=== PATIENT | male | born 1990 | race Caucasian/White ===

== ENCOUNTER → 2020-06-25 11:36 | Outpatient (BNVA) | payer OTHER, MEDICAID, SELFPAY | PROVIDERS: PCP Internal Medicine; Visit Provider Urology | DX: N20.0 Calculus of kidney (principal) | CPT/HCPCS: 99202 ==

== ENCOUNTER → 2021-05-13 12:18 | Outpatient (BNVA) | payer OTHER, MEDICAID, SELFPAY | PROVIDERS: Visit Provider Urology ==

== ENCOUNTER → 2021-05-27 09:58 | Outpatient (BNVA) | payer OTHER, MEDICAID, SELFPAY | PROVIDERS: Visit Provider Urology ==

== ENCOUNTER 2021-11-15 12:27 | Outpatient (REF) | payer OTHER, SELFPAY ==
--- NOTE | ~2021-11-15 | US_ITS ---
EXAMINATION: US RETROPERITONEAL LIMITED (RENAL ONLY) CLINICAL INFORMATION: Renal stones. COMPARISON: None TECHNIQUE: Grayscale and color imaging of the kidneys. FINDINGS: RIGHT KIDNEY: 12.2 x 4.7 x 5.7 cm (SAG x AP x TRV). The kidney is normal in size, contour, and echogenicity. Renal cortical thickness is normal. No calculi or focal parenchymal lesions. No hydronephrosis. LEFT KIDNEY: 14.8 x 5.5 x 5.6 cm (SAG x AP x TRV). The kidney is normal in size, contour, and echogenicity. Renal cortical thickness is normal. No focal parenchymal lesions. No hydronephrosis. There are multiple, at least 6, left renal stones. Largest stone measures 4 mm. US/US renal BI IMPRESSION: Left renal stones.
== END 2021-11-15 12:28 | disposition home or self-care (01) ==
LOC: HO.HMGCX 12:27
PROVIDERS: Visit Provider Urology
DX: N20.0 Calculus of kidney (principal)
CPT/HCPCS: 76775

== ENCOUNTER → 2021-12-14 11:48 | Outpatient (BNVA) | payer OTHER, SELFPAY | PROVIDERS: Visit Provider Urology | DX: Z13.89 Encounter for screening for other disorder (principal) ==

== ENCOUNTER 2023-10-29 04:07 | Emergency (ER) | payer OTHER, SELFPAY ==
--- NOTE | ~2023-10-29 | CT_ITS ---
EXAMINATION: CT ABDOMEN AND PELVIS WITHOUT CONTRAST CLINICAL INFORMATION: Right CVA, history of kidney stones COMPARISON: None available. TECHNIQUE: Multidetector volumetric imaging was performed from the superior aspect of the liver through the pubic symphysis. Sagittal and coronal reformatted images were obtained on the technologist's workstation. This CT examination was performed using dose optimization techniques as appropriate, variously including the following: *Automated exposure control *Adjustment of mA and/or kV according to patient size (this includes techniques or standardized protocols for targeted exams where dose is matched to indication/reason for exam; i.e. extremities or head) *Use of iterative reconstruction technique DLP: 1004 mGy-cm FINDINGS: LUNG BASES: The visualized lung bases are unremarkable. LIVER, GALLBLADDER, AND BILIARY TREE: The liver is normal in size, shape, and attenuation. No focal hepatic lesion or biliary ductal dilatation is identified on this noncontrast exam. Gallbladder is contracted and not adequately evaluated. PANCREAS: Unremarkable. SPLEEN: Unremarkable. ADRENAL GLANDS: Unremarkable. KIDNEYS AND URETERS: No hydronephrosis or obstructing ureteral calculus identified bilaterally. Left renal collecting system is duplicated. There are multiple scattered calculi throughout both kidneys, overall left greater than right measuring up to approximately 7 mm. BLADDER: Mildly distended and grossly unremarkable. GASTROINTESTINAL TRACT: The stomach is distended with fluid and debris. No evidence of bowel obstruction. Colonic diverticulosis is noted. No significant bowel wall thickening is seen. The appendix is unremarkable. No free fluid or free air is seen. ABDOMINAL WALL: No significant hernia is appreciated. LYMPH NODES: Normal. VASCULAR: Mild scattered atherosclerotic calcification. PELVIC VISCERA: Unremarkable. OSSEOUS STRUCTURES: Screw is present in the left femoral neck. Right L5 pars defect is noted. CT/CT abdomen pelvis wo IV con IMPRESSION: 1. No hydronephrosis or obstructing ureteral calculus identified. Multiple bilateral renal calculi. 2. Colonic diverticulosis. 3. Distended stomach containing fluid/debris.
[2023-10-29 04:20] VITALS: BP 152/86; PULSE 68; RESP 18; TEMP 37; O2SAT 98; BMI 38.8
[2023-10-29 04:39] LABS: MANUAL DIFF FLAG NO
[2023-10-29 04:40] VITALS: BP 136/80; PULSE 58; RESP 16; TEMP 36.8; O2SAT 97
[2023-10-29 04:40] LABS: Basophils Percent Auto 0.7 % (0-2); Eosinophils Absolute Auto 0.2 X10*3/uL (0.0-0.4); Eosinophils Percent Auto 3.3 % (0-4); Hematocrit 41.2 % (42.0-52.0); Hemoglobin 13.5 g/dl (14.0-18.0); Lymphocytes Absolute Auto 2.1 X10*3/uL (1.2-4.9); Lymphocytes Percent Auto 37.4 % (20-40); Mean Corpuscular HGB Conc 32.8 g/dl (31.0-36.0); Mean Corpuscular Hemoglobin 24.9 pg (27.0-33.0); Mean Corpuscular Volume 75.9 fL (80.0-98.0); Monocytes Absolute Auto 0.7 X10*3/uL (0.1-1.2); Monocytes Percent Auto 12.2 % (2-11); Neutrophils Absolute Auto 2.7 x10*3/uL (2.0-8.3); Neutrophils Percent Auto 46.4 % (45-73); Platelet Count 293 X10*3/uL (160-400); Red Blood Count 5.43 X10*6/uL (4.60-5.80); Red Cell Distribution Width 13.2 % (11.0-16.0); White Blood Count 5.7 X10*3/uL (4.8-10.8)
[2023-10-29 04:41] LABS: Appearance Urine Clear; Color Urine Yellow; Glucose Urine UA Negative (Negative); Leukocyte Esterase Urine Negative (Negative); Nitrite Urine Negative (Negative); PH 5.5 (5.0-9.0); Specific Gravity - Urine 1.015 (1.005-1.025); Urine Blood Negative (Negative); Urine Ketones Negative (Negative); Urine Protein Negative (Neg-Trace)
[2023-10-29 04:46] LABS: Bacteria Urine None Seen (None Seen); Hyaline Casts Urine 0-2 /LPF (0-2); RBC Urine 0-2 /HPF (0-2); Squamous Epithelial Cell Urine 0-2 /HPF (0-2); WBC Urine 0-5 /HPF (0-5)
--- NOTE | 2023-10-29 04:47 | ED.ABDPAIN ---
HPI - Abdominal Pain General Chief Complaint: Abdominal Pain Stated Complaint: kidney stones Time Seen by Provider: 10/29/23 04:34 Source: patient Mode of arrival: ambulatory Limitations: no limitations History of Present Illness HPI narrative: Right flank pain since last night, no nausea, no vomiting. Patient stated similar to his previous renal colic and kidney stones in the past. No fever, no chills. Related Data Home Medications Medication Instructions Recorded Confirmed famotidine 20 mg tablet 20 mg PO BID 12/14/21 sumatriptan succinate 25 mg tablet 25 mg PO headache 12/14/21 Previous Rx's Medication Instructions Recorded pyridoxine (vitamin B6) 100 mg 100 mg PO DAILY 90 days #90 tabs 12/14/21 tablet Allergies Allergy/AdvReac Type Severity Reaction Status Date / Time shellfish Allergy Unknown Unknown Uncoded 10/29/23 04:24 Review of Systems Review of Systems All other systems are reviewed and are negative Constitutional: Reports as per HPI and Reports no additional constitutional complaints Eyes: Reports as per HPI and Reports no additional eye complaints Reports system reviewed and no additional complaints, except as documented Cardiovascular: Reports as per HPI and Reports no additional cardiovascular complaints Respiratory: Reports as per HPI and Reports no additional respiratory complaints Gastrointestinal: Reports as per HPI and Reports no additional gastrointestinal complaints Genitourinary: Reports no additional female genitourinary complaints Musculoskeletal: Reports no additional musculoskeletal complaints Skin/Breast: Reports system reviewed and no additional complaints, except as docu Psychiatric: Reports no additional psychiatric complaints Endocrine: Reports no additional endocrine complaints Hematologic/Lymphatic: Reports no additional hematologic/lymphatic complaints Allergic/Immunologic: Reports no additional allergic/immunologic complaints Reports system reviewed and no additional complaints, except as documented and Reports Abnormal speech present [facility] Social History Social History Advance Directives: No Advance Directives Information Provided: No Physical Exam ED Vital Signs: Vital Signs - 24 hr 10/29/23 04:20 10/29/23 04:40 Temperature 98.6 F 98.3 F Pulse Rate 68 58 Respiratory Rate 18 16 Blood Pressure 152/86 H 136/80 Pulse Oximetry 98 97 Oxygen Delivery Method Room Air Room Air BMI result Body Mass Index 38.8 Vital signs have been reviewed and appear to be correct. Blood pressure elevated. Heart rate normal. Respiratory rate normal. Temperature normal. Oxygen saturation normal. Appearance: Alert. Oriented X3. No acute distress. Head: Normal external exam. Normocephalic. Atraumatic. No Duque signs noted. No raccoon eyes noted Eyes: PERRLA. EOMI. Conjunctiva and sclera normal. Eyelids normal. ENT: TM's Normal. Pharynx normal. Uvula midline. Moist mucous membranes. No trismus noted. No drooling noted. No muffled voice noted. Neck: Normal inspection. Neck supple. FROM. No adenopathy. Thyroid Normal. No meningeal signs. No neck mass noted. CVS: Normal heart rate and rhythm. Heart sound normal. No murmurs noted. Pulses normal throughout. Respiratory: No respiratory distress. Painless inspiration. Breath sounds normal. No wheezes/rales/rhonchi noted. Chest nontender. No accessory muscle usage noted or decreased air movement noted. Abdomen: Soft and nontender. Bowel sounds normal in all 4 quadrants. No distention noted. No organomegaly noted. No visible injury noted. Back: No CVA tenderness. Full range of motion noted. Skin: Skin warm and dry. Normal skin color. Normal skin turgor. No rashes/lesions/lacerations noted. Extremities: No lower extremity edema. Extremities exhibit normal range of motion. Extremities nontender. Neuro: Oriented X 3. Cranial nerve exam: II-XII are grossly intact No motor deficit. No sensory deficit. Reflexes normal. Course Reevaluation(s) Reevaluation #1: 33-year-old male history of obstructing kidney stones in the past came in with right flank pain, CT is showing no obstructing renal calculi. May be recently passed a kidney stone. Findings were discussed with the patient to follow-up with Dr. Gardner. Time: 05:24 Medical Decision Making Differential Diagnosis Differential Diagnoses: The differential diagnosis associated with the presentation includes (Obstructing kidney stone, UTI, pyelonephritis, colitis, diverticulitis, severe anemia, electrolyte derangement.) Admission/Observation Consideration of admission/observation: Escalation of care including admission/observation considered Lab Data MDM Lab Attestation statement: I reviewed the patient's lab results. 10/29/23 04:34 10/29/23 04:34 Labs: Lab Results 10/29/23 Range/Units 04:34 WBC 5.7 (4.8-10.8) X10*3/uL RBC 5.43 (4.60-5.80) X10*6/uL Hgb 13.5 L (14.0-18.0) g/dl Hct 41.2 L (42.0-52.0) % MCV 75.9 L (80.0-98.0) fL MCH 24.9 L (27.0-33.0) pg MCHC 32.8 (31.0-36.0) g/dl RDW 13.2 (11.0-16.0) % Plt Count 293 (160-400) X10*3/uL MPV 9.0 L (9.4-12.4) fL Immature Gran % (Auto) 0.0 (0.0-0.4) % Neut % (Auto) 46.4 (45-73) % Lymph % (Auto) 37.4 (20-40) % [place] % (Auto) 12.2 H (2-11) % Eos % (Auto) 3.3 (0-4) % Baso % (Auto) 0.7 (0-2) % Lymph # (Auto) 2.1 (1.2-4.9) X10*3/uL [place] # (Auto) 0.7 (0.1-1.2) X10*3/uL Eos # (Auto) 0.2 (0.0-0.4) X10*3/uL Baso # (Auto) 0.0 (0.0-0.2) X10*3/uL Abs Immat Gran (auto) 0.00 (0.00-0.03) X10*3/uL Absolute Neuts (auto) 2.7 (2.0-8.3) x10*3/uL Absolute Nucleated RBC 0.000 (0.0-0.012) X10*3/uL Nucleated RBC % (auto) 0.0 (0.0-0.2) /100WBC Sodium 143 (135-145) mmol/L Potassium 3.7 (3.3-5.1) mmol/L Chloride 110 H (96-108) mmol/L Carbon Dioxide 25 (22-29) mmol/L Anion Gap 12 (12-20) BUN 21 H (9-16) mg/dL Creatinine 1.02 (0.5-1.4) mg/dL Estim Creat Clear Calc 143.4 Estimated GFR > 60 Random Glucose 104 (60-115) mg/dL Calcium 9.8 (8.4-10.2) mg/dL Total Bilirubin 0.3 (0.0-1.0) mg/dL AST 21 (5-37) U/L ALT 30 (0-40) U/L Alkaline Phosphatase 94 (39-117) U/L Total Protein 7.9 (6.5-8.0) g/dL Albumin 4.1 (3.5-5.0) g/dL Urine Color Yellow Urine Appearance Clear Urine pH 5.5 (5.0-9.0) Ur Specific [place] 1.015 (1.005-1.025) Urine Protein Negative (Neg-Trace) mg/dL Urine Glucose (UA) Negative (Negative) mg/dL Urine Ketones Negative (Negative) mg/dL Urine Blood Negative (Negative) Urine Nitrite Negative (Negative) Ur Leukocyte Esterase Negative (Negative) Urine RBC 0-2 (0-2) /HPF Urine WBC 0-5 (0-5) /HPF Ur Squamous Epith Cells 0-2 (0-2) /HPF Urine Bacteria None Seen (None Seen) Hyaline Casts 0-2 (0-2) /LPF Independent Interpretation I performed an independent interpretation of an: CT Scan (1. No hydronephrosis or obstructing ureteral calculus identified. Multiple bilateral renal calculi. 2. Colonic diverticulosis. 3. Distended stomach containing fluid/debris. ) Radiology Impression Discussion of test interpretation with radiology: I have reviewed the radiologist's reading. Chronic Conditions Patient?s care impacted by: Other (Kidney stones.) Medications Administered Generic Name Dose Route Start Last Admin Trade Name Freq PRN Reason Stop Dose Admin Sodium Chloride 1,000 mls @ 999 mls/hr 10/29/23 04:35 10/29/23 04:53 Ns IV 10/29/23 05:35 999 mls/hr .[id number] ONE Administration Discontinued Medications Generic Name Dose Route Start Last Admin Trade Name Freq PRN Reason Stop Dose Admin Ketorolac Tromethamine 30 mg 10/29/23 04:35 10/29/23 04:53 Ketorolac Tromethamine 30 Mg/Ml Vial IVPUSH 10/29/23 04:36 30 mg ONCE ONE Administration Morphine Sulfate 1 mg 10/29/23 04:35 10/29/23 04:53 Morphine Sulfate 2 Mg/Ml Cartridge IVPUSH 10/29/23 04:36 1 mg ONCE ONE Administration Protocol Discharge Plan Discharge Clinical Impression: Abdominal pain Patient Disposition: Home, Self-Care Instructions: Abdominal Pain (ED) Prescriptions: No Action famotidine 20 mg tablet 20 mg PO BID sumatriptan succinate 25 mg tablet 25 mg PO pyridoxine (vitamin B6) 100 mg tablet 100 mg PO DAILY 90 Days Qty: 90 1RF Referrals: Tyler Gardner MD [Physician] - Stand Alone Forms: Work/School Release
[2023-10-29] MEDS: Morphine Sulfate 2 MG/ML CARTRIDGE 1 MG IVPUSH (04:53)
[2023-10-29] MEDS: Ketorolac Tromethamine 30 MG/ML VIAL IVPUSH (04:53)
[2023-10-29] MEDS: 0.9 % Sodium Chloride 1,000 ML 999 ML IV (04:53)
[2023-10-29 04:55] LABS: Alanine Aminotransferase 30 U/L (0-40); Albumin Level 4.1 g/dL (3.5-5.0); Alkaline Phosphatase 94 U/L (39-117); Anion Gap 12 (12-20); Aspartate Amino Transferase 21 U/L (5-37); Bilirubin Total 0.3 mg/dL (0.0-1.0); Blood Urea Nitrogen 21 mg/dL (9-16); Calcium 9.8 mg/dL (8.4-10.2); Carbon Dioxide 25 mmol/L (22-29); Chloride 110 mmol/L (96-108); Creatinine Clr Calc Pharmacy 143.4; Estimated Glomerular Filt Rate > 60; Glucose Random 104 mg/dL (60-115); Potassium 3.7 mmol/L (3.3-5.1); Sodium 143 mmol/L (135-145); Total Protein 7.9 g/dL (6.5-8.0)
== END 2023-10-29 05:39 | disposition home or self-care (01) ==
PROVIDERS: Emergency Provider Emergency Medicine
DX: R10.9 Unspecified abdominal pain (principal); Z87.442 Personal history of urinary calculi; Z79.899 Other long term (current) drug therapy
CPT/HCPCS: 36415; 74176; 80053; 81001; 85025; 96374; 96375; 99284; 99285; J1885; J2270

== ENCOUNTER 2024-06-19 16:51 | Emergency (ER) | payer BC, SELFPAY ==
--- NOTE | ~2024-06-19 | CT_ITS ---
EXAMINATION: CT ABDOMEN AND PELVIS WITHOUT CONTRAST CLINICAL INFORMATION: Left flank pain. Kidney stones? COMPARISON: CT abdomen pelvis dated October 29, 2023. TECHNIQUE: Multidetector volumetric imaging was performed from the superior aspect of the liver through the pubic symphysis. Sagittal and coronal reformatted images were obtained on the technologist's workstation. This CT examination was performed using dose optimization techniques as appropriate, variously including the following: *Automated exposure control *Adjustment of mA and/or kV according to patient size (this includes techniques or standardized protocols for targeted exams where dose is matched to indication/reason for exam; i.e. extremities or head) *Use of iterative reconstruction technique DLP: 1030 mGy-cm FINDINGS: LUNG BASES: The visualized lung bases are unremarkable. LIVER, GALLBLADDER, AND BILIARY TREE: The liver is normal in size, shape, and attenuation. No focal hepatic lesion or biliary ductal dilatation is present. The gallbladder is contracted and not adequately evaluated. PANCREAS: Unremarkable. SPLEEN: Unremarkable. ADRENAL GLANDS: Unremarkable. KIDNEYS AND URETERS: Right side: The right kidney is normal in size, shape, and attenuation. No hydronephrosis or hydroureter. There are numerous very small nonobstructive right renal calculi, measuring up to 1.8 mm in diameter. No perinephric stranding. Left side: The left kidney is normal in size, shape, and attenuation. No hydronephrosis or hydroureter. There are numerous nonobstructive left renal calculi. The largest is located within the upper pole and measures 11 mm in diameter. This calculus has a mean Hounsfield unit value of 681. No perinephric stranding. BLADDER: Unremarkable. GASTROINTESTINAL TRACT: The small and large bowel are normal in caliber. There is mild sigmoid colon diverticulosis. There is no evidence of acute diverticulitis. The appendix is unremarkable. ABDOMINAL WALL: No significant hernia is appreciated. LYMPH NODES: No lymphadenopathy. VASCULAR: No abdominal aortic aneurysm. PELVIC VISCERA: Unremarkable. OSSEOUS STRUCTURES: No acute osseous abnormality. There is a pars defect at L5 on the right side. CT/CT abdomen pelvis wo IV con IMPRESSION: No acute intra-abdominal/intrapelvic abnormality. Bilateral nonobstructive renal calculi as described. Mild sigmoid colon diverticulosis. Fleischner guidelines were followed. Electronically signed by: Daniel Cárdenas DO 06/19/2024 09:11 PM EDT RP
[2024-06-19 18:02] VITALS: BP 159/108; PULSE 60; RESP 16; TEMP 36.8; O2SAT 100; BMI 40.5
--- NOTE | 2024-06-19 18:09 | ED.GENADULT ---
HPI - General Adult General Chief complaint: Urogenital-Male Stated complaint: l flank pain Time Seen by Provider: 06/20/24 00:39 Source: patient Mode of arrival: ambulatory Limitations: no limitations History of Present Illness ED Provider: Dr. Clements HPI narrative: History obtained with help of vocational nursing instructor. Patient is a 34 yo male with a history of frequent kidney stones who presents with left flank pain. Denies fever or hematuria. Onset (ago): day(s) Related Data Home Medications ?Medication ?Instructions ?Recorded ?Confirmed famotidine 20 mg tablet 20 mg PO BID 12/14/21 sumatriptan succinate 25 mg tablet 25 mg PO headache 12/14/21 Previous Rx's ?Medication ?Instructions ?Recorded pyridoxine (vitamin B6) 100 mg 100 mg PO DAILY 90 days #90 tabs 12/14/21 tablet naproxen 500 mg tablet (Naprosyn) 500 mg PO BID #20 tabs 06/20/24 Allergies Allergy/AdvReac Type Severity Reaction Status Date / Time shellfish Allergy Unknown Unknown Uncoded 06/19/24 18:04 Review of Systems Review of Systems: Yes all other systems are reviewed and are negative Neurologic: Denies Sensory deficit (Neuro) [facility] Social History Social History Smoked in Last 30 Days: No Use of substances other than those prescribed or required for medical reasons: No Any prior treatment program specific to substance use: No Advance Directives: No Advance Directives Information Provided: No Do you have a plan to hurt others: No Plan Physical Exam ED Vital Signs: Vital Signs - 24 hr 06/19/24 18:02 06/19/24 19:48 06/20/24 01:03 Temperature 98.3 F 97.7 F 98.1 F Pulse Rate 60 57 55 Respiratory Rate 16 16 18 Blood Pressure 159/108 H 154/84 H 141/92 H Pulse Oximetry 100 100 98 Oxygen Delivery Method Room Air Room Air Room Air 06/20/24 01:23 06/20/24 01:24 Temperature 98.1 F 98.1 F Pulse Rate 55 55 Respiratory Rate 18 18 Blood Pressure 141/92 H 141/92 H Pulse Oximetry 98 98 Oxygen Delivery Method Room Air Room Air BMI result Body Mass Index 40.5 Const Other: large obese male in no acute distress General: healthy appearing Nutritional Appearance: obese Orientation/consciousness: oriented to person and patient oriented x3 Limitations: no limitations HENMT Head: Yes normal to inspection Ears: external ears normal General nose exam: Normal external nose present Mouth: Normal oral and palatal mucosa present and oropharynx normal Throat: Yes posterior oropharynx normal Eyes General: appearance normal, both eyes and all related structures Neck Neck: Yes normal visual inspection Chest Chest palpation & inspection: normal inspection of the chest Resp Auscultation: clear to auscultation bilaterally Cardio Jugular venous distension: no JVD Rate: regular rate Rhythm: regular rhythm Heart sounds: S1 normal heart sound present and S2 normal heart sound present GI Inspection: Yes normal to inspection Palpation (GI): Soft to palpation, nontender and No hepatosplenomegaly present Auscultation: normal bowel sounds General: Yes no CVA tenderness Back/Spine/Pelvis Back: no CVA tenderness Skin General skin exam: no rashes or lesions noted Neuro General: oriented to person and patient oriented x3 Cranial nerves: Yes CN's II-XII intact bilaterally Motor exam (neuro): 5/5 motor strength present throughout Sensory Exam: No Sensory deficit (Neuro) Extrem General: Yes normal to inspection Psych Appearance: grossly normal Course Course Course Narrative: RME: 34-year-old male history of kidney stones presents to ED for left flank pain. Patient states history of kidney stones in the past and has similar presentation with symptoms now. Patient denies any dysuria hematuria. Patient states some nausea. Labs UA CT scan will be ordered. Positive CVA flanks Reevaluation(s) Reevaluation #1: CT shows no hydro or renal swelling, Urine no infection will dc on NSAIDs Time: 01:02 Medications Administered Discontinued Medications Generic Name Dose Route Start Last Admin Trade Name Sneha PRN Reason Stop Dose Admin Acetaminophen 650 mg 06/20/24 00:22 06/20/24 00:25 Acetaminophen 325 Mg Tablet PO 06/20/24 00:23 650 mg ONCE ONE Administration Ketorolac Tromethamine 60 mg 06/20/24 01:02 06/20/24 01:10 Ketorolac Tromethamine 60 Mg/2 Ml Vial IM 06/20/24 01:03 60 mg ONCE ONE Administration Medical Decision Making Differential Diagnosis Differential Diagnoses: The differential diagnosis associated with the presentation includes (renal colic, hydronephrosis, pyelonephrosis, ) Admission/Observation Consideration of admission/observation: Escalation of care including admission/observation considered (upon arrival patient considered for admission) Lab Data 06/19/24 19:17 06/19/24 19:17 Labs: Lab Results 06/19/24 Range/Units 19:17 WBC 6.9 (4.8-10.8) X10*3/uL RBC 5.12 (4.60-5.80) X10*6/uL Hgb 12.8 L (14.0-18.0) g/dl Hct 39.4 L (42.0-52.0) % MCV 77.0 L (80.0-98.0) fL MCH 25.0 L (27.0-33.0) pg MCHC 32.5 (31.0-36.0) g/dl RDW 13.0 (11.0-16.0) % Plt Count 302 (160-400) X10*3/uL MPV 9.2 L (9.4-12.4) fL Immature Gran % (Auto) 0.3 (0.0-0.4) % Neut % (Auto) 50.3 (45-73) % Lymph % (Auto) 35.1 (20-40) % [place] % (Auto) 10.4 (2-11) % Eos % (Auto) 3.2 (0-4) % Baso % (Auto) 0.7 (0-2) % Lymph # (Auto) 2.4 (1.2-4.9) X10*3/uL [place] # (Auto) 0.7 (0.1-1.2) X10*3/uL Eos # (Auto) 0.2 (0.0-0.4) X10*3/uL Baso # (Auto) 0.1 (0.0-0.2) X10*3/uL Abs Immat Gran (auto) 0.02 (0.00-0.03) X10*3/uL Absolute Neuts (auto) 3.5 (2.0-8.3) x10*3/uL Absolute Nucleated RBC 0.000 (0.0-0.012) X10*3/uL Nucleated RBC % (auto) 0.0 (0.0-0.2) /100WBC Sodium 141 (135-145) mmol/L Potassium 3.9 (3.3-5.1) mmol/L Chloride 105 (96-108) mmol/L Carbon Dioxide 28 (22-29) mmol/L Anion Gap 12 (12-20) BUN 13 (9-16) mg/dL Creatinine 0.88 (0.5-1.4) mg/dL Estim Creat Clear Calc 168.4 Estimated GFR > 60 Random Glucose 86 (60-115) mg/dL Calcium 9.6 (8.4-10.2) mg/dL Total Bilirubin 0.4 (0.0-1.0) mg/dL AST 32 (5-37) U/L ALT 49 H (0-40) U/L Alkaline Phosphatase 102 (39-117) U/L Total Protein 8.1 H (6.5-8.0) g/dL Albumin 4.2 (3.5-5.0) g/dL Urine Color Yellow Urine Appearance Clear Urine pH 5.5 (5.0-9.0) Ur Specific [place] 1.015 (1.005-1.025) Urine Protein Negative (Neg-Trace) mg/dL Urine Glucose (UA) Negative (Negative) mg/dL Urine Ketones Negative (Negative) mg/dL Urine Blood Negative (Negative) Urine Nitrite Negative (Negative) Ur Leukocyte Esterase Negative (Negative) Independent Interpretation I performed an independent interpretation of an: CT Scan (bilateral stones, no hydro) Radiology Impression Discussion of test interpretation with radiology: I have reviewed the radiologist's reading. (and agree) External Record Review External record reviewed: Outpatient record Prescription Management I considered prescription management with: Antibiotic (no evidence of UTI no no abx given) Chronic Conditions Patient?s care impacted by: Other (chronic stone former) Discharge Plan Discharge Clinical Impression: Flank pain Patient Disposition: Home, Self-Care Instructions: Flank Pain (ED) Prescriptions: New naproxen [Naprosyn] 500 mg tablet 500 mg PO BID Qty: 20 0RF No Action famotidine 20 mg tablet 20 mg PO BID sumatriptan succinate 25 mg tablet 25 mg PO pyridoxine (vitamin B6) 100 mg tablet 100 mg PO DAILY 90 Days Qty: 90 1RF Referrals: Riky Sims MD [Physician] - 5 days Stand Alone Forms: Work/School Release Interventions: ED Discharge Assessment Last Done: 06/20/24 01:24 Discharge Date/Time: 06/20/24 01:26 Print Language: Occitan
[2024-06-19 19:21] LABS: MANUAL DIFF FLAG NO
[2024-06-19 19:24] LABS: Appearance Urine Clear; Color Urine Yellow; Glucose Urine UA Negative (Negative); Leukocyte Esterase Urine Negative (Negative); Nitrite Urine Negative (Negative); PH 5.5 (5.0-9.0); Specific Gravity - Urine 1.015 (1.005-1.025); Urine Blood Negative (Negative); Urine Ketones Negative (Negative); Urine Protein Negative (Neg-Trace)
[2024-06-19 19:39] LABS: Basophils Absolute Auto 0.1 X10*3/uL (0.0-0.2); Basophils Percent Auto 0.7 % (0-2); Eosinophils Absolute Auto 0.2 X10*3/uL (0.0-0.4); Eosinophils Percent Auto 3.2 % (0-4); Hematocrit 39.4 % (42.0-52.0); Hemoglobin 12.8 g/dl (14.0-18.0); Imm Gran Abs Auto 0.02 X10*3/uL (0.00-0.03); Imm Gran Pct Auto 0.3 % (0.0-0.4); Lymphocytes Absolute Auto 2.4 X10*3/uL (1.2-4.9); Lymphocytes Percent Auto 35.1 % (20-40); Mean Corpuscular HGB Conc 32.5 g/dl (31.0-36.0); Mean Platelet Volume 9.2 fL (9.4-12.4); Monocytes Absolute Auto 0.7 X10*3/uL (0.1-1.2); Monocytes Percent Auto 10.4 % (2-11); Neutrophils Absolute Auto 3.5 x10*3/uL (2.0-8.3); Neutrophils Percent Auto 50.3 % (45-73); Platelet Count 302 X10*3/uL (160-400); Red Blood Count 5.12 X10*6/uL (4.60-5.80); White Blood Count 6.9 X10*3/uL (4.8-10.8)
[2024-06-19 19:40] LABS: Alanine Aminotransferase 49 U/L (0-40); Albumin Level 4.2 g/dL (3.5-5.0); Alkaline Phosphatase 102 U/L (39-117); Anion Gap 12 (12-20); Aspartate Amino Transferase 32 U/L (5-37); Bilirubin Total 0.4 mg/dL (0.0-1.0); Blood Urea Nitrogen 13 mg/dL (9-16); Calcium 9.6 mg/dL (8.4-10.2); Carbon Dioxide 28 mmol/L (22-29); Chloride 105 mmol/L (96-108); Creatinine Clr Calc Pharmacy 168.4; Estimated Glomerular Filt Rate > 60; Glucose Random 86 mg/dL (60-115); Potassium 3.9 mmol/L (3.3-5.1); Sodium 141 mmol/L (135-145); Total Protein 8.1 g/dL (6.5-8.0)
[2024-06-19 19:48] VITALS: BP 154/84; PULSE 57; RESP 16; TEMP 36.5; O2SAT 100
[2024-06-20] MEDS: Acetaminophen 325 MG TABLET 650 MG PO (00:25)
[2024-06-20 01:03] VITALS: BP 141/92; PULSE 55; RESP 18; TEMP 36.7; O2SAT 98
[2024-06-20] MEDS: Ketorolac Tromethamine 60 MG/2 ML VIAL IM (01:10)
[2024-06-20 01:23] VITALS: BP 141/92; PULSE 55; RESP 18; TEMP 36.7; O2SAT 98
[2024-06-20 01:24] VITALS: BP 141/92; PULSE 55; RESP 18; TEMP 36.7; O2SAT 98
== END 2024-06-20 01:26 | disposition home or self-care (01) ==
PROVIDERS: Physician Assistant; Emergency Provider Emergency Medicine
DX: R10.9 Unspecified abdominal pain (principal); N20.0 Calculus of kidney; R11.0 Nausea; K57.90 Diverticulosis of intestine, part unspecified, without perforation or abscess without bleeding
CPT/HCPCS: 36415; 74176; 80053; 81003; 85025; 96372; 99284; J1885

== ENCOUNTER 2025-03-30 14:20 | Observation (INO) | payer BC, SELFPAY ==
--- NOTE | ~2025-03-30 | CT_ITS ---
CLINICAL HISTORY: headache CT head without contrast Comparison: None provided Findings: No intra-axial mass, midline shift, hydrocephalus, or acute hemorrhage. No significant atrophy-like change or white matter disease. There is no sinus or mastoid fluid. The orbits are unremarkable. There is no acute fracture. IMPRESSION: 1. No acute intracranial findings. This document has been electronically signed by: Daly Huggins MD on 03/30/2025 16:25:08
--- NOTE | ~2025-03-30 | CT_ITS ---
CLINICAL HISTORY: headache, exertional, right sided CT angiography of the head and neck with contrast. With MIP MPR Postprocessing. Comparison: Head CT from 03/30/2025 Findings: Head: No ICA or M1 occlusion. Tortuosity of the vessels noted. The basilar artery is patent. Asymmetry of the proximal SONA in the proximal MCA course. Proximal smelter operator are unremarkable. No proximal intracranial arterial aneurysm. Neck: Multifocal noncalcified and irregular plaque involve bilateral carotid bulbs and bilateral carotid bifurcations, right worse than left. However, no significant stenosis of either internal carotid artery by NASCET criteria. No penetrating ulceration. No dissection flap defined by CT. The right vertebral artery is dominant. Portions of the vessels obscured by artifacts. Apparent common origin of the brachiocephalic artery and left common carotid artery. Streak artifact including from left-sided injection. Mild bibasilar atelectasis. Degenerative changes include cervical facet arthropathy. Anterior positioning of the temporomandibular joints with mild osteoarthritis without dislocation. Imaged cervical lymph nodes are likely reactive. Subcutaneous edema is present, particularly dependently. IMPRESSION: Head: 1. No ICA or M1 occlusion. 2. The basilar artery is patent. Neck: 1. No significant stenosis of either internal carotid artery by NASCET criteria 2. The right vertebral artery is dominant. 3. Early noncalcified plaque including proximal right ICA. This document has been electronically signed by: Raman Banuelos MD on 03/30/2025 22:03:30
--- NOTE | ~2025-03-30 | XR_ITS ---
CLINICAL HISTORY: HTN, headache 2 view chest x-ray Comparison: None provided Findings: The lungs are clear. Heart size is normal. No acute fracture. IMPRESSION: 1. No acute findings. This document has been electronically signed by: Daly Huggins MD on 03/30/2025 16:07:15
[2025-03-30 15:00] VITALS: BP 181/97; PULSE 51; RESP 18; TEMP 37.1; O2SAT 96; BMI 42.9
--- NOTE | 2025-03-30 15:01 | ED.GENADULT ---
[facility] - General Adult General Chief complaint: Headache Stated complaint: continuous Headache for a month Time Seen by Provider: 03/30/25 15:31 Source: patient and RN notes reviewed Mode of arrival: ambulatory Limitations: no limitations History of Present Illness ED Provider: Radha Sparks PA-C HPI narrative: This is a 35-year-old male, with no known medical problems, who presents emergency department for evaluation of ongoing headache for the last month. Patient reports that he has had a headache that has primarily right-sided. He states that his headache he has had daily. He states that he went to [facility] where he waited however was never fully evaluated. He does see a primary care physician. Denies any formal diagnosis of high blood pressure. He reports pain is localized around right side of his head, and occasionally goes into his right eye, with associated tearing. Denies any current blurred vision. He denies any dizziness, weakness, chest pain, shortness of breath, abdominal pain, nausea, vomiting or diarrhea. No known head strike or head injury. No other complaints or concerns at this time. MD complaint: Headache Onset (ago): month(s) Location: head Radiation: non-radiation Pain Consistency: constant Relieving factors: none Exacerbating factors: none Associated symptoms: denies other symptoms Treatments prior to arrival: none Related Data Home Medications ?Medication ?Instructions ?Recorded ?Confirmed famotidine 20 mg tablet 20 mg PO BID 12/14/21 sumatriptan succinate 25 mg tablet 25 mg PO headache 12/14/21 Previous Rx's ?Medication ?Instructions ?Recorded pyridoxine (vitamin B6) 100 mg 100 mg PO DAILY 90 days #90 tabs 12/14/21 tablet naproxen 500 mg tablet (Naprosyn) 500 mg PO BID #20 tabs 06/20/24 lisinopril 5 mg tablet 5 mg PO DAILY 30 days #30 tabs 03/30/25 Allergies Allergy/AdvReac Type Severity Reaction Status Date / Time shellfish Allergy Unknown Unknown Uncoded 03/30/25 15:08 Review of Systems Review of Systems: Yes all other systems are reviewed and are negative Constitutional: Constitutional: Reports as per [facility] Social History Social History Smoked in Last 30 Days: No Use of substances other than those prescribed or required for medical reasons: No Advance Directives: No Advance Directives Information Provided: No Do you have a plan to hurt others: No Plan Physical Exam ED Vital Signs: Vital Signs - 24 hr 03/30/25 15:00 03/30/25 16:02 03/30/25 17:44 Temperature 98.7 F 98.2 F Pulse Rate 51 55 100 Respiratory Rate 18 18 17 Blood Pressure 181/97 H 168/89 H 154/81 H Pulse Oximetry 96 99 99 Oxygen Delivery Method Room Air Room Air Room Air 03/30/25 18:08 Temperature Pulse Rate Respiratory Rate Blood Pressure 151/67 H Pulse Oximetry Oxygen Delivery Method BMI result Body Mass Index 42.9 Const General: cooperative, comfortable and no acute distress Orientation/consciousness: patient oriented x3 Limitations: no limitations HENMT Head: Yes normal to inspection, Yes normocephalic and Yes atraumatic Ears: hearing grossly normal bilaterally General nose exam: Normal external nose present Face and sinus: Yes normal facial exam Mouth: Normal oral and palatal mucosa present, oropharynx normal and moist mucous membranes Throat: Yes posterior oropharynx normal Eyes General: appearance normal, both eyes and all related structures Eyelids: Yes eyelids normal Conjunctivae: conjunctivae normal Sclerae: sclerae normal Pupils: Equal, round and reactive pupils present EOM: EOMs intact bilaterally Neck Neck: Yes normal visual inspection, Yes full ROM and Yes no lymphadenopathy Lymphatic: no lymphadenopathy noted Chest Chest palpation & inspection: normal inspection of the chest Resp Effort & Inspection: normal respiratory effort and able to speak in complete sentences Auscultation: clear to auscultation bilaterally, no crackles, no rales, no rhonchi and no wheezes Cardio Rate: regular rate Rhythm: regular rhythm Heart sounds: S1 normal heart sound present and S2 normal heart sound present GI Inspection: Yes normal to inspection Skin General skin exam: no rashes or lesions noted Trauma: no lacerations or abrasions Wounds: no wounds Neuro General: patient oriented x3 and moves all extremities Cranial nerves: Yes CN's II-XII intact bilaterally and Yes Equal, round and reactive pupils present Cognition (Neuro): normal cognition Gait exam (Neuro): Normal gait present Motor exam (neuro): 5/5 motor strength present throughout and Pronator motor function not present Coordination: [id number] test normal Extrem General: Yes normal to inspection Right upper extremity: normal to inspection Left upper extremity: normal to inspection Right lower extremity: normal to inspection Left lower extremity: normal to inspection Course Course Course Narrative: Rapid medical examination performed in triage by Ayla Ortiz PA-C. Patient is a 35 year old assigned male at presenting to the emergency department with a headache. Patient states he has had a headache for the last month. Detailed physical exam and review of systems are deferred to the beauty consultant. EKG, labs, and imaging ordered. Patient placed back in the waiting room pending room availability and results. Reevaluation(s) Reevaluation #1: 10:32 PM 03/30/2025 (Barrett TEIXEIRA): The patient was signed out to this provider at shift change. In summary the patient is a 35-year-old morbidly obese male with history of HTN, presenting to the ED for evaluation of intractable headache. The patient was noted to be moderately hypertensive, treated with lisinopril. The patient has received IV fluid hydration, migraine cocktail, and IV Tylenol without resolution of his headache. Upon re-evaluation by initial provider, the patient advised that his headache gets acutely worse during intercourse, as such a CTA was ordered. Patient was signed out to this provider pending CTA. Patient's CTA has now resulted and shows no acute pathology. Patient is reporting continued pain, we will treat with morphine and admit for intractable headache. Medications Administered Discontinued Medications Generic Name Dose Route Start Last Admin Trade Name Freq PRN Reason Stop Dose Admin Diphenhydramine HCl 25 mg 03/30/25 17:02 03/30/25 18:04 Diphenhydramine Hcl 50 Mg/Ml Vial IVPUSH 03/30/25 17:03 25 mg ONCE ONE Administration Sodium Chloride 1,000 mls @ 999 mls/hr 03/30/25 15:58 03/30/25 18:00 Ns IV 03/30/25 16:58 Infused .Q1H1M ONE Infusion Acetaminophen 1,000 mg in 100 mls @ 400 mls/hr 03/30/25 15:57 03/30/25 16:40 Ofirmev IV 03/30/25 16:11 Infused ONCE ONE Infusion Sodium Chloride 1,000 mls @ 999 mls/hr 03/30/25 17:45 03/30/25 19:25 Ns IV 03/30/25 18:45 Infused .Q1H1M ONE Infusion Iohexol 100 ml 03/30/25 20:34 03/30/25 20:34 Iohexol 350 Mg/Ml 100 Ml Infus..Btl IV 03/30/25 20:35 80 ml ONCE ONE Administration Ketorolac Tromethamine 15 mg 03/30/25 17:02 03/30/25 18:04 Ketorolac Tromethamine 15 Mg/Ml Vial IVPUSH 03/30/25 17:03 15 mg ONCE ONE Administration Lisinopril 5 mg 03/30/25 17:04 03/30/25 18:08 Lisinopril 5 Mg Tablet PO 03/30/25 17:05 5 mg ONCE ONE Administration Protocol Metoclopramide HCl 10 mg 03/30/25 17:02 03/30/25 18:04 Metoclopramide Hcl 10 Mg/2 Ml Vial IVPUSH 03/30/25 17:03 10 mg ONCE ONE Administration Medical Decision Making Medical Decision Making [facility] Narrative: This is a 35-year-old male who presents emergency department with concerns of headache for the last month. On arrival, patient's blood pressure elevated at 181/87. Upon getting back to a room, I repeated blood pressure, blood pressure 168/89. He is neurologically intact, speaking in full sentences under no acute distress parents prior to my evaluation, labs were collected, he has no leukocytosis, he has a microcytic anemia with an H&H of 12.4/38.2. Chemistry revealing no acute electrolyte derangement. Urine does not appear to be infectious. Head CT revealing no acute findings. Chest x-ray revealing no acute process. EKG sinus bradycardic at a ventricular rate of 57 beats per minute, no STEMI. I discussed this case with my attending physician, Dr. Cuadra. We will medicate patient to treat for pain with IV Tylenol, IV fluids. He did not have any relief after this therefore we medicated with a migraine cocktail. He is resting comfortably. Also medicate with lisinopril 5 mg. At this time, it is unlikely that the source of his headache is secondary to his blood pressure. Patient likely has a essential hypertension as well as a headache therefore treating both. We will continue to closely monitor pending overall workup. 1954- Patient is still not feeling better. Upon re-evaluation, patient does mention pain behind his eye which worsens when he leans forward. He also reports significant pain during intercourse. Given these further details, CT angio head and neck indicated. I gave signed out to my colleague, Robin Griffin PA-C pending CTA and re-eval Differential Diagnosis Differential Diagnoses: The differential diagnosis associated with the presentation includes Hypertensive urgency, hypertensive crisis, migraine headache, electrolyte derangement, dehydration Admission/Observation Consideration of admission/observation: Escalation of care including admission/observation considered Lab Data [facility] Lab Attestation statement: I reviewed the patient's lab results. See [facility] 03/30/25 15:20 03/30/25 15:20 Labs: Lab Results 03/30/25 03/30/25 Range/Units 15:20 18:25 WBC 6.1 (4.8-10.8) X10*3/uL RBC 5.00 (4.60-5.80) X10*6/uL Hgb 12.4 L (14.0-18.0) g/dl Hct 38.2 L (42.0-52.0) % MCV 76.4 L (80.0-98.0) fL MCH 24.8 L (27.0-33.0) pg MCHC 32.5 (31.0-36.0) g/dl RDW 13.8 (11.0-16.0) % Plt Count 259 (160-400) X10*3/uL MPV 9.0 L (9.4-12.4) fL Immature Gran % (Auto) 0.3 (0.0-0.4) % Neut % (Auto) 51.2 (45-73) % Lymph % (Auto) 33.8 (20-40) % [place] % (Auto) 11.0 (2-11) % Eos % (Auto) 3.0 (0-4) % Baso % (Auto) 0.7 (0-2) % Lymph # (Auto) 2.1 (1.2-4.9) X10*3/uL [place] # (Auto) 0.7 (0.1-1.2) X10*3/uL Eos # (Auto) 0.2 (0.0-0.4) X10*3/uL Baso # (Auto) 0.0 (0.0-0.2) X10*3/uL Abs Immat Gran (auto) 0.02 (0.00-0.03) X10*3/uL Absolute Neuts (auto) 3.1 (2.0-8.3) x10*3/uL Absolute Nucleated RBC 0.000 (0.0-0.012) X10*3/uL Nucleated RBC % (auto) 0.0 (0.0-0.2) /100WBC Sodium 143 (135-145) mmol/L Potassium 4.0 (3.3-5.1) mmol/L Chloride 111 H (96-108) mmol/L Carbon Dioxide 25 (22-29) mmol/L Anion Gap 11 L (12-20) BUN 10 (9-16) mg/dL Creatinine 0.78 (0.5-1.4) mg/dL Estim Creat Clear Calc 194.3 Estimated GFR > 60 Random Glucose 81 (60-115) mg/dL Calcium 8.7 D (8.4-10.2) mg/dL Magnesium 2.0 (1.6-2.6) mg/dL Total Bilirubin 0.2 (0.0-1.0) mg/dL AST 34 (5-37) U/L ALT 41 H (0-40) U/L Alkaline Phosphatase 82 (39-117) U/L Total Protein 7.2 (6.5-8.0) g/dL Albumin 4.0 (3.5-5.0) g/dL Urine Color Yellow Urine Appearance Clear Urine pH 6.0 (5.0-9.0) Ur Specific [place] 1.010 (1.005-1.025) Urine Protein Negative (Neg-Trace) mg/dL Urine Glucose (UA) Negative (Negative) mg/dL Urine Ketones Negative (Negative) mg/dL Urine Blood Negative (Negative) Urine Nitrite Negative (Negative) Ur Leukocyte Esterase Negative (Negative) Independent Interpretation I performed an independent interpretation of an: EKG Interpretation: EKG sinus bradycardic at 57 beats per minute, WA interval 172, QT QTC 392/381, no STEMI Radiology Impression Discussion of test interpretation with radiology: I have reviewed the radiologist's reading. Radiologist Impression: Findings: No intra-axial mass, midline shift, hydrocephalus, or acute hemorrhage. No significant atrophy-like change or white matter disease. There is no sinus or mastoid fluid. The orbits are unremarkable. There is no acute fracture. IMPRESSION: 1. No acute intracranial findings. This document has been electronically signed by: Daly Huggins MD on 03/30/2025 16:25:08 Dictated By: Daly Huggins MD Findings: The lungs are clear. Heart size is normal. No acute fracture. IMPRESSION: 1. No acute findings. This document has been electronically signed by: Daly Huggins MD on 03/30/2025 16:07:15 Dictated By: Daly Huggins MD Discharge Plan Discharge Clinical Impression: Acute intractable headache, Hypertension Patient Disposition: Admitted As Inpatient Print Language: Somali
--- NOTE | 2025-03-30 15:06 | ECG_ITS ---
Test Reason : HTN Blood Pressure : */* mmHG Vent. Rate : 57 BPM Atrial Rate : 57 BPM P-R Int : 172 ms QRS Dur : 88 ms QT Int : 392 ms P-R-T Axes : 27 19 10 degrees QTcB Int : 381 ms Sinus bradycardia Otherwise normal ECG When compared with ECG of 28-Sep-2018 11:44, No significant change was found Referred By: Ayla Ortiz Electronically Signed By: Ralph Qiu
[2025-03-30 15:25] LABS: Hematocrit 38.2 % (42.0-52.0); Hemoglobin 12.4 g/dl (14.0-18.0); Imm Gran Abs Auto 0.02 X10*3/uL (0.00-0.03); Imm Gran Pct Auto 0.3 % (0.0-0.4); Lymphocytes Absolute Auto 2.1 X10*3/uL (1.2-4.9); MANUAL DIFF FLAG NO; Mean Corpuscular HGB Conc 32.5 g/dl (31.0-36.0); Mean Corpuscular Hemoglobin 24.8 pg (27.0-33.0); Mean Corpuscular Volume 76.4 fL (80.0-98.0); NRBC Abs Auto 0.000 X10*3/uL (0.0-0.012); NRBC Pct Auto 0.0 /100WBC (0.0-0.2); Platelet Count 259 X10*3/uL (160-400); Red Blood Count 5.00 X10*6/uL (4.60-5.80); White Blood Count 6.1 X10*3/uL (4.8-10.8)
[2025-03-30 15:47] LABS: Alanine Aminotransferase 41 U/L (0-40); Albumin Level 4.0 g/dL (3.5-5.0); Alkaline Phosphatase 82 U/L (39-117); Anion Gap 11 (12-20); Aspartate Amino Transferase 34 U/L (5-37); Blood Urea Nitrogen 10 mg/dL (9-16); Calcium 8.7 mg/dL (8.4-10.2); Carbon Dioxide 25 mmol/L (22-29); Chloride 111 mmol/L (96-108); Creatinine Clr Calc Pharmacy 194.3; Estimated Glomerular Filt Rate > 60; Magnesium 2.0 mg/dL (1.6-2.6); Potassium 4.0 mmol/L (3.3-5.1); Sodium 143 mmol/L (135-145); Total Protein 7.2 g/dL (6.5-8.0)
[2025-03-30 16:02] VITALS: BP 168/89; PULSE 55; RESP 18; O2SAT 99
--- NOTE | 2025-03-30 16:17 | PC.NURSE ---
35 M presents with h/a x 1 month, pain in center of head, unknown cause. A+Ox4, calm, cooperative, and ambulatory. Pt denies SOB or CP. RR even and unlabored.
[2025-03-30 17:44] VITALS: BP 154/81; PULSE 100; RESP 17; TEMP 36.8; O2SAT 99
[2025-03-30 18:08] VITALS: BP 151/67
[2025-03-30 18:32] LABS: Appearance Urine Clear; Glucose Urine UA Negative (Negative); PH 6.0 (5.0-9.0); Specific Gravity - Urine 1.010 (1.005-1.025)
[2025-03-30] MEDS: iohexoL 350 MG/ML 100 ML INFUS..BTL IV (20:34)
[2025-03-30 22:41] VITALS: BP 144/78; PULSE 65; RESP 16; TEMP 36.5; O2SAT 98
[2025-03-30 22:43] VITALS: RESP 16
--- NOTE | 2025-03-30 23:13 | PM.IMHP ---
History of Present Illness Date of Service: 03/30/25 Attending physician on admission: Kevin Menendez Chief Complaint: headache Patient is a 35-year-old male with a past medical history significant for hypertension, kidney stones and morbid obesity, who presented to the ED due to a headache for the past month, mostly right-sided that radiates to the right eye and causes tearing. He describes his pain as a 10/10 pulsing behind his R eye, improved to 8/10 with morphine. Has a has intermittent numbness and tingling in the bilateral upper extremities as well as neck pain. He denies any recent trauma. He reports the headache worsens with intercourse or exerting himself as well as with bending forward with associated SOB. 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 He vapes nicotine and has been cutting back, quit 2 weeks ago then restarted but is using his vape much less. He denies any fever, chills, nausea or vomiting. No photosensitivity, trauma, recent travel or sick contacts. He was just prescribed lisionpril today and sumatripatan but did not get a change to start them yet. Review of Systems Constitutional: Constitutional: Denies body ache(s), Denies chills, Denies fatigue, Denies fever(s) and Reports headache(s) Eyes: Eyes: Reports blurry vision ENT: Reports headache(s), Denies nasal congestion and Denies sore throat Cardiovascular: Cardiovascular: Denies chest pain, Denies rapid heart rate, Denies leg edema, Reports lightheadedness and Reports dyspnea Respiratory: Respiratory: Denies chest congestion, Denies cough, Reports dyspnea and Denies wheezing Gastrointestinal: Gastrointestinal: Denies abdominal pain, Denies diarrhea, Denies nausea and Denies vomiting Genitourinary: Genitourinary: Denies dysuria, Denies urinary frequency and Denies urinary urgency Musculoskeletal: Musculoskeletal: Denies myalgias Integumentary/Breasts: Skin/Breast: Denies rash Neurologic: Denies confusion and Reports headache(s) Psychiatric: Psychiatric: Denies confusion Endocrine: Endocrine: Denies fatigue Hematologic/Lymphatic: Hematologic/Lymphatic: Denies easy bleeding and Denies easy bruising Allergic/Immunologic: Allergic/Immunologic: Denies wheezing [facility] Medical History (Updated 03/31/25 @ 00:00 by Katelin Chaudhry PA-C) Morbid obesity Hypertension Social History Smoked in Last 30 Days: No Use of substances other than those prescribed or required for medical reasons: No Advance Directives: No Advance Directives Information Provided: No Do you have a plan to hurt others: No Plan Meds Allergies Allergy/AdvReac Type Severity Reaction Status Date / Time shellfish Allergy Unknown Unknown Uncoded 03/30/25 15:08 Home Medications ?Medication ?Instructions ?Recorded ?Confirmed ?Last Taken ?Type famotidine 20 mg tablet 20 mg PO BID 12/14/21 Unknown History sumatriptan succinate 25 mg tablet 25 mg PO headache 12/14/21 Unknown History Physical Exam Vital Signs and Narrative: Vital Signs: Last Vital Signs Temp 97.7 F 03/30/25 22:41 Pulse 65 03/30/25 22:41 Resp 16 03/30/25 22:43 BP 144/78 H 03/30/25 22:41 Pulse Ox 98 03/30/25 22:41 O2 Del Method Room Air 03/30/25 22:41 BMI result Body Mass Index 42.9 General: AOx3, no acute distress, seen with park interpreter. Significant other bedside. Resp: CTA bilaterally, no wheezing or crackles CVS: S1, S2, RRR GI: +BS, NT, no distention Skin: Warm, dry Neuro: Cranial nerves II-XII grossly intact bilaterally. Motor grossly intact bilaterally. PERRL, no photosensitivity. negative kernig and brudzinski but does elicit worsening headache with chin to chest and active leg raise. Extremities: No lower extremity edema Psych: Appropriate affect Const: General: No confusion Orientation/consciousness: No confusion Neuro: General: No confusion Results Labs 03/30/25 15:20 03/30/25 15:20 Labs: Laboratory Results - last 24 hr 03/30/25 03/30/25 15:20 18:25 MCV 76.4 L MCH 24.8 L MCHC 32.5 RDW 13.8 Plt Count 259 MPV 9.0 L Immature Gran % (Auto) 0.3 Neut % (Auto) 51.2 Lymph % (Auto) 33.8 [place] % (Auto) 11.0 Eos % (Auto) 3.0 Baso % (Auto) 0.7 Lymph # (Auto) 2.1 [place] # (Auto) 0.7 Eos # (Auto) 0.2 Baso # (Auto) 0.0 Abs Immat Gran (auto) 0.02 Absolute Neuts (auto) 3.1 Absolute Nucleated RBC 0.000 Nucleated RBC % (auto) 0.0 Anion Gap 11 L Estim Creat Clear Calc 194.3 Estimated GFR > 60 Random Glucose 81 Calcium 8.7 D Magnesium 2.0 Total Bilirubin 0.2 AST 34 ALT 41 H Alkaline Phosphatase 82 Total Protein 7.2 Albumin 4.0 Urine Color Yellow Urine Appearance Clear Urine pH 6.0 Ur Specific [place] 1.010 Urine Protein Negative Urine Glucose (UA) Negative Urine Ketones Negative Urine Blood Negative Urine Nitrite Negative Ur Leukocyte Esterase Negative Assessment and Plan (1) Acute intractable headache: Status: Acute (2) Hypertensive urgency: Status: Acute (3) Elevated LFTs: Status: Acute (4) Morbid obesity: Status: Acute Plan Patient is a 35-year-old male with a past medical history significant for hypertension, kidney stones and morbid obesity, who presented to the ED due to a headache for the past month, mostly right-sided that radiates to the right eye and causes tearing. acute intractiable headache with hypertensive urgency - BP 181/97 on arrival with severe headache for the past month, worse with exertion - head CT negative - CTA head/neck with early noncalcified plaque including proximal right ICA - no leukocytosis, afebrile, no evidence of active infection - chest x-ray negative - UA negative - ALT 41, just above normal range, likely fatty liver secondary to morbid obesity - patient received Benadryl, Toradol and Reglan in ED without improvement of pain - received lisinopril 5 mg for hypertension with improvement of blood pressure, currently 144/78 - mild improvement with IV morphine, admit for observation due to intractable pain with hypertension - sumatriptan 25 mg p.o. x1 - monitor on telemetry - if no improvement with above interventions consider additional workup with LP and neurology consult Microcytic anemia, chronic - hemoglobin 12.4, hematocrit 38.2, MCV 76.4 - check iron studies - no need for blood transfusion at this time - follow CBC Hyperchloremia - no metabolic acidosis however chloride elevated - given 2 L NS in ED - monitor BMP elevated LFTs, likely fatty liver, not organ damage from HTN - AST 34, ALT elevated at 41, Alk phos 82, t bili 0.2 - follow up outpt Morbid obesity - BMI 42.9 - weight loss encouraged Med rec pending Full code VTE prophylaxis: SCDs Patient with acute intractable headache with hypertensive urgency, requiring admission for observation for pain management and monitoring. Quality Stroke Does the patient have a stroke diagnosis?: No VTE Prior VTE?: No VTE Risk Level:: Medical - moderate - high VTE Device Contraindication: N/A - Device Ordered VTE Drug Contraindication: Treatment Not Indicated
[2025-03-31] VITALS (8 sets, daily range): BP systolic 116–162; BP diastolic 57–89; PULSE 55–68; RESP 16–20; TEMP 36.3–36.8; O2SAT 96–100; BMI 42.7; BMI 45.2
[2025-03-31 00:30] LABS: Iron 83 mcg/dL (45-160); Percent Iron Saturation 28 % (15-50); Total Iron Binding Capacity 292 mcg/dL (228-428); Unsaturated Iron Binding 209 ug/dL
[2025-03-31 05:01] LABS: Hematocrit 37.6 % (42.0-52.0); Hemoglobin 12.0 g/dl (14.0-18.0); Mean Corpuscular HGB Conc 31.9 g/dl (31.0-36.0); Mean Corpuscular Hemoglobin 24.6 pg (27.0-33.0); Mean Corpuscular Volume 77.0 fL (80.0-98.0); NRBC Abs Auto 0.000 X10*3/uL (0.0-0.012); NRBC Pct Auto 0.0 /100WBC (0.0-0.2); Platelet Count 275 X10*3/uL (160-400); Red Blood Count 4.88 X10*6/uL (4.60-5.80); White Blood Count 6.2 X10*3/uL (4.8-10.8)
[2025-03-31 05:14] LABS: Anion Gap 13 (12-20); Blood Urea Nitrogen 12 mg/dL (9-16); Calcium 8.5 mg/dL (8.4-10.2); Carbon Dioxide 24 mmol/L (22-29); Chloride 111 mmol/L (96-108); Creatinine Clr Calc Pharmacy 226.2; Estimated Glomerular Filt Rate > 60; Potassium 4.1 mmol/L (3.3-5.1); Sodium 144 mmol/L (135-145)
[2025-03-31] MEDS: 0.9 % Sodium Chloride Flush 3 ML SYRINGE IVFLUSH ×2 (08:53→19:51)
--- NOTE | 2025-03-31 08:58 | PHA.MEDREC ---
Pharmacy Consult ? Medication Reconciliation Pharmacy has completed the medication reconciliation. Spoke to patient via manufacturing automation engineer to confirm medication list. Patient is not taking any prescriptions, only OTC apap and ibuprofen as needed.
--- NOTE | 2025-03-31 09:05 | PC.NURSE ---
This RN placed pt on director cardiac at shift change as they are an [facility] admit and were not on tele by previous RN. This RN resumed care at 0700, he was sleeping at that time. Pt is up at this time, ate breakfast, reporting mild POST at this time. All other needs met, call diane within reach. Awaiting bed assignment at this time
--- NOTE | 2025-03-31 11:10 | P.CNNE_ITS ---
History of Present Illness Data of Consult Service Date: 03/31/25 Primary Care Provider: Unknown Physician HPI Reason for consult: Headache 35 years old man with headaches since he was a child. During recent weeks he was having more frequent headaches. He denied any trauma or cold or flu-like illness or any other plausible reason for headache. Headaches were happening few times a week and typically more so when he was stressed or concentrating or talking loudly. One time his vision got blurred when he had a severe headache while having organism. Pain was on both side of the head behind the eye and throbbing in nature. He used to take Excedrin that help but now it was not helping anymore. He saw an eye doctor few months ago when no other problem was found. Review of Systems 2 Review of Systems: No recent cold or flu-like illness PMFSH Past Medical History Medical History (Updated 03/31/25 @ 11:13 by Kylah Thomas MD) Morbid obesity Hypertension Social History Social History Patient Tobacco Use Status: Current everyday Tobacco user Smoked in Last 30 Days: No Use of substances other than those prescribed or required for medical reasons: No Advance Directives: No Advance Directives Information Provided: No Do you have a plan to hurt others: No Plan Nutrition Risks: No Nutritional Risk Meds Allergies Allergy/AdvReac Type Severity Reaction Status Date / Time shellfish Allergy Unknown Unknown Uncoded 03/30/25 15:08 Active Medications: Current Medications Acetaminophen (Acetaminophen 325 Mg Tablet) 975 mg PO Q6H PRN PRN Reason: Pain, Mild 1-3,fever,headache Last Admin: 03/31/25 09:11 Dose: 975 mg Calcium Carbonate (Calcium Carbonate 750 Mg Tab.Chew) 750 mg PO Q4H PRN PRN Reason: Heartburn Magnesium Hydroxide (Milk Of Magnesia 30 Ml Oral.Susp) 30 ml PO DAILY PRN PRN Reason: Constipation Melatonin (Melatonin 3 Mg Tablet) 6 mg PO BEDTIME PRN PRN Reason: Insomnia Nicotine Polacrilex (Nicotine Polacrilex Lozenge 2 Mg Lozenge) 2 mg BUCCAL Q2H PRN PRN Reason: Nicotine Cravings Ondansetron HCl (Ondansetron Hcl 4 Mg/2 Ml Vial) 4 mg IVPUSH Q8H PRN PRN Reason: Nausea and Vomiting Oxycodone HCl (Oxycodone Hcl Immed Release 5 Mg Tablet) 5 mg PO Q6H PRN PRN Reason: Pain, Severe (Pain Scale 7-10) Sodium Chloride (0.9 % Sodium Chloride Flush 3 Ml Syringe) 3 ml IVFLUSH QSHIFT NEELAM Last Admin: 03/31/25 08:53 Dose: 3 ml Tramadol HCl (Tramadol Hcl 50 Mg Tablet) 50 mg PO Q6H PRN PRN Reason: Pain, Moderate(Pain Scale 4-6) Last Admin: 03/31/25 09:11 Dose: 50 mg Home Medications ?Medication ?Instructions ?Recorded ?Confirmed ?Last Taken ?Type acetaminophen 500 mg tablet 1,000 mg PO DAILY PRN Head ache 03/31/25 03/31/25 Unknown History ibuprofen 200 mg tablet 400 mg PO DAILY PRN Pain 07/1503/31/25 Unknown History Physical Exam 2 Vital Signs: Vital Signs: Last Vital Signs Temp 97.8 F 03/31/25 06:55 Pulse 64 03/31/25 10:00 Resp 19 03/31/25 10:00 BP 149/87 H 03/31/25 10:00 Pulse Ox 97 03/31/25 10:00 O2 Del Method Room Air 03/31/25 10:00 BMI result Body Mass Index 42.9 Neuro: Other: He is young obese man no obvious distress. He was comfortable and working on his phone and talking over his phone when I saw him. History was obtained with the help of an wetlands conservation laborer. Neck was supple. Visual pacheco are full. There was no pronator drift. Deep tendon reflexes were trace to absent with flexor plantars. Face was symmetrical. Extraocular muscles were intact. Speech was normal. Results Labs 03/31/25 03:45 03/31/25 03:45 Labs: Short CBC 03/30/25 03/31/25 Range/Units 15:20 03:45 WBC 6.1 6.2 (4.8-10.8) X10*3/uL Hgb 12.4 L 12.0 L (14.0-18.0) g/dl Hct 38.2 L 37.6 L (42.0-52.0) % Plt Count 259 275 (160-400) X10*3/uL BMP 03/30/25 03/31/25 15:20 03:45 Sodium 143 144 Potassium 4.0 4.1 Chloride 111 H 111 H Carbon Dioxide 25 24 BUN 10 12 Creatinine 0.78 0.67 Calcium 8.7 D 8.5 Liver Function 03/30/25 Range/Units 15:20 Total Bilirubin 0.2 (0.0-1.0) mg/dL AST 34 (5-37) U/L ALT 41 H (0-40) U/L Alkaline Phosphatase 82 (39-117) U/L Albumin 4.0 (3.5-5.0) g/dL Urine 03/30/25 Range/Units 18:25 Urine Color Yellow Urine Appearance Clear Urine pH 6.0 (5.0-9.0) Ur Specific [place] 1.010 (1.005-1.025) Urine Protein Negative (Neg-Trace) mg/dL Urine Glucose (UA) Negative (Negative) mg/dL Head CT did not reveal any significant abnormality. CTA of brain and neck did not reveal any significant abnormality either. Assessment and Plan (1) Acute intractable headache: Qualifiers: Headache type: unspecified Qualified Code(s): R51.9 - Headache, unspecified Status: Acute Probably migraine without aura in this young man with significant obesity was having had a sense he was a child. My recommendation is to start him on topiramate 25 mg twice a day and given prescription of sumatriptan 50 mg as needed. Lyme serology and sed rate or also recommended. Procedures Date of Service Date of Service: 03/31/25
--- NOTE | 2025-03-31 12:12 | PC.NURSE ---
Pt alerted that we will need to collect a urine sample on him next time that he needs to go
--- NOTE | 2025-03-31 13:28 | MHC.CM.PN ---
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 His PCP is: Francisco Dunlap at [facility] in [facility]. He does not use home health services or DME. Family to transport home at [place], DCP: home, self care, CM to follow for DC needs.
[2025-03-31 14:32] LABS: Cannabinoid Screen Urine Not Detected (Not Detect)
--- NOTE | 2025-03-31 14:52 | HO.PM.IMPN ---
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 Resp: CTA bilaterally, no wheezing or crackles CVS: S1, S2, RRR GI: +BS, NT, no distention Skin: Warm, dry Neuro: aox3 ,moves all ext. Extremities: No lower extremity edema Psych: Appropriate affect Vital Signs: Vital Signs: Last Vital Signs Temp 97.8 F 03/31/25 06:55 Pulse 56 03/31/25 14:05 Resp 19 03/31/25 14:05 BP 116/60 03/31/25 14:05 Pulse Ox 98 03/31/25 14:05 O2 Del Method Room Air 03/31/25 14:05 BMI result Body Mass Index 42.9 Objective Data Active Medications Acetaminophen (Acetaminophen 325 Mg Tablet) 975 mg PO Q6H PRN PRN Reason: Pain, Mild 1-3,fever,headache Last Admin: 03/31/25 09:11 Dose: 975 mg Documented By: ALEKS Calcium Carbonate (Calcium Carbonate 750 Mg Tab.Chew) 750 mg PO Q4H PRN PRN Reason: Heartburn Magnesium Hydroxide (Milk Of Magnesia 30 Ml Oral.Susp) 30 ml PO DAILY PRN PRN Reason: Constipation Melatonin (Melatonin 3 Mg Tablet) 6 mg PO BEDTIME PRN PRN Reason: Insomnia Nicotine Polacrilex (Nicotine Polacrilex Lozenge 2 Mg Lozenge) 2 mg BUCCAL Q2H PRN PRN Reason: Nicotine Cravings Ondansetron HCl (Ondansetron Hcl 4 Mg/2 Ml Vial) 4 mg IVPUSH Q8H PRN PRN Reason: Nausea and Vomiting Oxycodone HCl (Oxycodone Hcl Immed Release 5 Mg Tablet) 5 mg PO Q6H PRN PRN Reason: Pain, Severe (Pain Scale 7-10) Sodium Chloride (0.9 % Sodium Chloride Flush 3 Ml Syringe) 3 ml IVFLUSH QSHIFT NEELAM Last Admin: 03/31/25 08:53 Dose: 3 ml Documented By: ALEKS Sumatriptan Succinate (Sumatriptan Succinate 25 Mg Tablet) 25 mg PO BID NEELAM Tramadol HCl (Tramadol Hcl 50 Mg Tablet) 50 mg PO Q6H PRN PRN Reason: Pain, Moderate(Pain Scale 4-6) Last Admin: 03/31/25 09:11 Dose: 50 mg Documented By: ALEKS Labs 03/31/25 03:45 03/31/25 03:45 Labs: Laboratory Results - last 24 hr 03/30/25 03/30/25 03/31/25 15:20 18:25 03:45 MCV 76.4 L 77.0 L MCH 24.8 L 24.6 L MCHC 32.5 31.9 RDW 13.8 13.6 Plt Count 259 275 MPV 9.0 L 9.7 Immature Gran % (Auto) 0.3 Neut % (Auto) 51.2 Lymph % (Auto) 33.8 [place] % (Auto) 11.0 Eos % (Auto) 3.0 Baso % (Auto) 0.7 Lymph # (Auto) 2.1 [place] # (Auto) 0.7 Eos # (Auto) 0.2 Baso # (Auto) 0.0 Abs Immat Gran (auto) 0.02 Absolute Neuts (auto) 3.1 Absolute Nucleated RBC 0.000 0.000 Nucleated RBC % (auto) 0.0 0.0 Anion Gap 11 L 13 Estim Creat Clear Calc 194.3 226.2 Estimated GFR > 60 > 60 Random Glucose 81 89 Calcium 8.7 D 8.5 Magnesium 2.0 Iron 83 TIBC 292 % Saturation 28 Unsat Iron Binding 209 Total Bilirubin 0.2 AST 34 ALT 41 H Alkaline Phosphatase 82 Total Protein 7.2 Albumin 4.0 Urine Color Yellow Urine Appearance Clear Urine pH 6.0 Ur Specific [place] 1.010 Urine Protein Negative Urine Glucose (UA) Negative Urine Ketones Negative Urine Blood Negative Urine Nitrite Negative Ur Leukocyte Esterase Negative Urine Opiates Screen Ur Buprenorphine Scrn Ur Oxycodone Screen Urine Methadone Screen Urine Fentanyl Screen Ur Barbiturates Screen Ur Phencyclidine Scrn Ur Amphetamines Screen U Benzodiazepines Scrn Urine Cocaine Screen U Marijuana (THC) Screen 03/31/25 14:05 MCV MCH MCHC RDW Plt Count MPV Immature Gran % (Auto) Neut % (Auto) Lymph % (Auto) [place] % (Auto) Eos % (Auto) Baso % (Auto) Lymph # (Auto) [place] # (Auto) Eos # (Auto) Baso # (Auto) Abs Immat Gran (auto) Absolute Neuts (auto) Absolute Nucleated RBC Nucleated RBC % (auto) Anion Gap Estim Creat Clear Calc Estimated GFR Random Glucose Calcium Magnesium Iron TIBC % Saturation Unsat Iron Binding Total Bilirubin AST ALT Alkaline Phosphatase Total Protein Albumin Urine Color Urine Appearance Urine pH Ur Specific [place] Urine Protein Urine Glucose (UA) Urine Ketones Urine Blood Urine Nitrite Ur Leukocyte Esterase Urine Opiates Screen POSITIVE H Ur Buprenorphine Scrn Not Detected Ur Oxycodone Screen Not Detected Urine Methadone Screen Not Detected Urine Fentanyl Screen Not Detected Ur Barbiturates Screen Not Detected Ur Phencyclidine Scrn Not Detected Ur Amphetamines Screen Not Detected U Benzodiazepines Scrn Not Detected Urine Cocaine Screen Not Detected U Marijuana (THC) Screen Not Detected Assessment and Plan (1) Hypertension: Status: Acute (2) Elevated LFTs: Status: Acute Assessment and Plan: 35-year-old male with a past medical history significant for hypertension, kidney stones and morbid obesity, who presented to the ED due to a headache for the past month, mostly right-sided that radiates to the right eye and causes tearing. acute intractiable headache with htn:? migrane bp flactauting head CT ,CTA head/neck done no leukocytosis, afebrile, no evidence of active infection chest x-ray negative, UA negative,utox-pending ALT 41, just above normal range, likely fatty liver secondary to morbid obesity given Benadryl, Toradol and Reglan in ED without improvement of pain received lisinopril 5 mg for hypertension with improvement of blood pressure,blood pressure flactuating plan: added topamax 25 mg po bid ,prn sumatriptan,added lyme serology and esr. neurology eval Elevated bp : bp flactuating he said his bp was elevated last visit with pcp . encouraged to lose weight /low salt diet, stop smoking/vaping for now keep lisinopril 5 mg po qd. us negative , added hba1c /tsh levels . Microcytic anemia, chronic hemoglobin 12.4, hematocrit 38.2, MCV 76.4 iron studies-seems fine no need for blood transfusion at this time follow CBC elevated LFTs, likely fatty liver, not organ damage from HTN - AST 34, ALT elevated at 41, Alk phos 82, t bili 0.2 - follow up outpt Morbid obesity - BMI 42.9 - weight loss encouraged Med rec pending VTE prophylaxis: SCDs Patient with acute intractable headache with elevated bp: requiring admission for observation for pain management and monitoringhtn as well workup, neurology eval/workup. Quality Stroke Does the patient have a stroke diagnosis?: No VTE Prior VTE?: No VTE Risk Level:: Medical - moderate - high VTE Device Contraindication: N/A - Device Ordered VTE Drug Contraindication: Treatment Not Indicated
[2025-03-31 15:47] LABS: Hemoglobin A1C 129.5317 umol/L; Total Hemoglobin (HGBA1C) 3221.4830 umol/L
[2025-03-31 15:59] LABS: Thyroid Stimulating Hormone 2.90 uIU/mL (0.32-4.0)
[2025-04-01] VITALS: BP 131/69; PULSE 70; RESP 20; TEMP 36.7; O2SAT 98
[2025-04-01] MEDS: oxyCODONE HCl Immed Release 5 MG TABLET PO (00:56)
[2025-04-01 03:58] VITALS: BP 108/50; PULSE 71; RESP 20; TEMP 36.7; O2SAT 98
[2025-04-01 07:44] VITALS: BP 140/92; PULSE 66; RESP 20; TEMP 37; O2SAT 98
[2025-04-01] MEDS: 0.9 % Sodium Chloride Flush 3 ML SYRINGE IVFLUSH (08:35)
[2025-04-01 09:09] LABS: Lyme Abs Screen <0.90 index
--- NOTE | 2025-04-01 10:45 | MHC.CM.PN ---
PER HOSPITALIST PT TO BE MEDICALLY CLEARED FOR DC HOME SELF CARE, PT TO ARRANGE RIDE HOME.
--- NOTE | 2025-04-01 11:29 | P.DS_ITS ---
DS: Providers Provider Date of Service: 04/01/25 Date of admission: 03/30/25 23:02 Date of discharge: 04/01/25 Primary care physician: Unknown Physician Consults: 03/31/25 10:21 Consult to Neurology Routine Consulting Provider: [facility] Reason for consultation: Intractable headaches and dizziness Attending physician on discharge: Janene Dillard Discharging clinician: Janene Dillard DS: Diagnosis Discharge Diagnosis (1) Hypertension: Status: Acute (2) Elevated LFTs: Status: Acute DS: Summary Hospital Course Hospital Course: HPi 35-year-old male with a past medical history significant for hypertension, kidney stones and morbid obesity, who presented to the ED due to a headache for the past month, mostly right-sided that radiates to the right eye and causes tearing. He describes his pain as a 10/10 pulsing behind his R eye, improved to 8/10 with morphine. Has a has intermittent numbness and tingling in the bilateral upper extremities as well as neck pain. He denies any recent trauma. He reports the headache worsens with intercourse or exerting himself as well as with bending forward with associated SOB. 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 He vapes nicotine and has been cutting back, quit 2 weeks ago then restarted but is using his vape much less. He denies any fever, chills, nausea or vomiting. No photosensitivity, trauma, recent travel or sick contacts. He was just prescribed lisionpril today and sumatripatan but did not get a change to start them yet. hospital course: acute intractiable headache with htn:? migrane bp flactauting CTA head/neck with early noncalcified plaque including proximal right ICA and reviewed by neurology- no acute intervention . no leukocytosis, afebrile, no evidence of active infection chest x-ray negative, UA negative,utox-pending ALT 41, just above normal range, likely fatty liver secondary to morbid obesity given Benadryl, Toradol and Reglan in ED without improvement of pain plan: Neurology recommended: added topamax 25 mg po bid ,prn sumatriptan, lyme serology and esr fine. With the above supportive care patient's symptoms improved significantly so going home with Topamax and sumatriptan. Elevated bp : bp flactuating he said his bp was elevated last visit with pcp . encouraged to lose weight /low salt diet, stop smoking/vaping for now keep lisinopril 5 mg po qd. us negative , hba1c /tsh levels-normal. Microcytic anemia, chronic hemoglobin 12.4, hematocrit 38.2, MCV 76.4 iron studies-seems fine no need for blood transfusion at this time follow CBC elevated LFTs, likely fatty liver, not organ damage from HTN - AST 34, ALT elevated at 41, Alk phos 82, t bili 0.2 - follow up outpt mlild elevated lft-please check lft outpatient with PCP and further workup with PCP. Patient possibly had migraine , topamax 25 mg po bid ,sumatripton 50 mg prn. Elevated blood pressure: Lifestyle modifications including weight reduction, exercise, low-salt diet, also consider outpatient follow-up and workup for hypertension. Patient was also advised to monitor his blood pressure closely, if it persistently above 140s then may need to adjust out patiently lisinopril. Above management discussed with the patient in detail length he understand and in agreement with the above plan, time spent 40 minute, all question answered. Staff was present during conversation. Time Attestation Total time managing care of this patient today: 40 mintues. 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 Resp: CTA bilaterally, no wheezing or crackles CVS: S1, S2, RRR GI: +BS, NT, no distention Skin: Warm, dry Neuro: aox3 ,moves all ext. Extremities: No lower extremity edema Psych: Appropriate affect Vital Signs: Vital Signs: Last Vital Signs Temp 98.6 F 04/01/25 07:44 Pulse 66 04/01/25 07:44 Resp 20 04/01/25 07:44 BP 140/92 H 04/01/25 07:44 Pulse Ox 98 04/01/25 07:44 O2 Del Method Room Air 04/01/25 07:44 BMI result Body Mass Index 45.2 DS: Data Data Completed and Pending Labs on day of discharge: Laboratory Results - last 24 hr 03/31/25 03/31/25 03/31/25 03:45 14:05 15:42 ESR 14 Estimat Average Glucose 120 Hemoglobin A1c % 5.8 TSH 2.90 Urine Opiates Screen POSITIVE H Ur Buprenorphine Scrn Not Detected Ur Oxycodone Screen Not Detected Urine Methadone Screen Not Detected Urine Fentanyl Screen Not Detected Ur Barbiturates Screen Not Detected Ur Phencyclidine Scrn Not Detected Ur Amphetamines Screen Not Detected U Benzodiazepines Scrn Not Detected Urine Cocaine Screen Not Detected U Marijuana (THC) Screen Not Detected Lyme Screen IgG & IgM <0.90 Imaging Chest x-ray: My impression: cta head: Head: 1. No ICA or M1 occlusion. 2. The basilar artery is patent. Neck: 1. No significant stenosis of either internal carotid artery by NASCET criteria 2. The right vertebral artery is dominant. 3. Early noncalcified plaque including proximal right ICA. Discharge Plan Discharge Anticipated Discharge Date/Time: 04/01/25 11:22 Patient Disposition: Home, Self-Care Discharge Diagnosis: elevated bp, migrane Referrals: Physician,Unknown J [Physician, Medical] - 1 Week Discharge Medications: New lisinopril 5 mg tablet 5 mg PO DAILY 30 Days Qty: 30 1RF sumatriptan succinate 50 mg Tablet 50 mg PO DAILY PRN (Reason: Migraine Headache) Qty: 20 0RF topiramate 25 mg Tablet 25 mg PO BID Qty: 60 0RF Continued acetaminophen 500 mg Tablet 1,000 mg PO DAILY PRN (Reason: Headache) ibuprofen 200 mg Tablet 400 mg PO DAILY PRN (Reason: Pain) Discharge Orders: Discharge Order (Routine); Ordered 04/01/25 Ordered By: Janene Dillard Diet: Advance to usual diet Activity on Discharge: As tolerated Stand Alone Forms: Patient Portal Discharge page, Work/School Release Print Language: [place] Care Plan Goals: migrane. Health Concerns: as above. Plan of Treatment: mlild elevated lft-please check lft outpatient with PCP and further workup with PCP. Patient possibly had migraine , topamax 25 mg po bid ,sumatripton 50 mg prn. Elevated blood pressure: Lifestyle modifications including weight reduction, exercise, low-salt diet, also consider outpatient follow-up and workup for hypertension. Patient was also advised to monitor his blood pressure closely, if it persistently above 140s then may need to adjust out patiently lisinopril. Assessment: as above. Patient Instructions: Heart Healthy Diet (ED), How to Take a Blood Pressure Reading (ED), Acute Headache (ED), Hypertension (ED) Discharge Date/Time: 04/01/25 13:41
[2025-04-01 11:44] VITALS: BP 130/67; PULSE 59; RESP 20; TEMP 36.4; O2SAT 97
== END 2025-04-01 13:41 | disposition home or self-care (01) ==
LOC: HO.ED 22:36 → HO.EDOVER 23:27 → HO.IMC 03-31 16:58
PROVIDERS: Physician Assistant; Physician Assistant Medical; Admitting Provider Student in an Organized Health Care Education/Training Program; Emergency Provider Emergency Medicine Emergency Medical Services; PCP Pediatrics; Visit Provider Internal Medicine
DX: G43.909 Migraine, unspecified, not intractable, without status migrainosus (principal); R03.0 Elevated blood-pressure reading, without diagnosis of hypertension; R79.89 Other specified abnormal findings of blood chemistry; R20.0 Anesthesia of skin; M54.2 Cervicalgia; R06.02 Shortness of breath; D50.9 Iron deficiency anemia, unspecified; E66.01 Morbid (severe) obesity due to excess calories; Z68.41 Body mass index [BMI] 40.0-44.9, adult; Z87.442 Personal history of urinary calculi; Z79.899 Other long term (current) drug therapy
CPT/HCPCS: 36415; 70450; 70496; 70498; 71046; 80048; 80053; 80307; 81003; 83036; 83540; 83735; 84443; 85025; 85027; 85652; 86617; 86618; 93005; 96361; 96365; 96375; 99222; 99285; J0131; J1200; J1885; J2270; J2765; Q9967

== ENCOUNTER → 2025-03-30 15:06 | Outpatient (BNV) | payer BC, SELFPAY | PROVIDERS: Emergency Provider Emergency Medicine Emergency Medical Services; Visit Provider Radiology Diagnostic Radiology | DX: G44.84 Primary exertional headache (principal); G44.52 New daily persistent headache (NDPH); R06.02 Shortness of breath | CPT/HCPCS: 70450; 70496; 70498; 71046 ==

== ENCOUNTER → 2025-03-30 15:06 | Outpatient (BNV) | payer BC, SELFPAY | PROVIDERS: Admitting Provider Student in an Organized Health Care Education/Training Program; Emergency Provider Emergency Medicine Emergency Medical Services; Visit Provider Internal Medicine Cardiovascular Disease | DX: R00.1 Bradycardia, unspecified (principal) | CPT/HCPCS: 93010 ==

== ENCOUNTER → 2025-03-30 23:02 | Outpatient (BNV) | payer BC, SELFPAY | PROVIDERS: Admitting Provider Student in an Organized Health Care Education/Training Program; Emergency Provider Emergency Medicine Emergency Medical Services; Visit Provider Psychiatry & Neurology Neurology | DX: G43.009 Migraine without aura, not intractable, without status migrainosus (principal) | CPT/HCPCS: 99232 ==

== ENCOUNTER → 2025-03-30 23:02 | Outpatient (BNV) | payer BC, SELFPAY | PROVIDERS: Admitting Provider Student in an Organized Health Care Education/Training Program; Emergency Provider Emergency Medicine Emergency Medical Services; Visit Provider Physician Assistant | DX: R51.9 Headache, unspecified (principal); I16.0 Hypertensive urgency; R79.89 Other specified abnormal findings of blood chemistry; E66.01 Morbid (severe) obesity due to excess calories; I10 Essential (primary) hypertension | CPT/HCPCS: 99223; 99231 ==